=== PATIENT | female | born 1940 | race Native Hawaiian/Other Pacific Islander ===

== ENCOUNTER 2016-12-20 07:08 | Day surgery (SDC) | payer MEDICARE, MEDICAID ==
[2016-12-18 09:17] VITALS: BMI 28.7
[2016-12-20] MEDS ORDERED: Propofol 10 mg/ml Inj (20 ML) ONE (08:13)
[2016-12-20] MEDS ORDERED: Lidocaine 2% Inj (20ml) ONE (08:24)
[2016-12-20] MEDS ORDERED: Etomidate 20 mg/10ml Inj IV ONE (08:24)
[2016-12-20] MEDS ORDERED: Sodium Chloride 0.9% 1,000 ML IV SCH (09:00)
[2016-12-20 09:05] VITALS: O2SAT 99
[2016-12-20 09:52] VITALS: BP 153/75; PULSE 61; RESP 20; TEMP 98.5
== END 2016-12-20 10:22 | disposition home or self-care (01) ==
LOC: ENDO 07:08
PROVIDERS: ATTEND Specialist
DX: Z12.11 Encounter for screening for malignant neoplasm of colon (principal); K62.1 Rectal polyp; K57.30 Diverticulosis of large intestine without perforation or abscess without bleeding; K64.8 Other hemorrhoids
CPT/HCPCS: 45385; 82948; 88305; J2704; J7040 ×2

== ENCOUNTER 2018-01-30 06:39 | Day surgery (SDC) | payer MEDICARE, MEDICAID ==
[2018-01-02 14:09] VITALS: BMI 23.6
[2018-01-30 07:11] VITALS: RESP 16; TEMP 98.8
[2018-01-30] MEDS ORDERED: Propofol 10 mg/ml Inj (20 ML) ONE (08:04)
[2018-01-30] MEDS ORDERED: Lidocaine 1% Inj (20ml) ONE (08:04)
[2018-01-30] MEDS ORDERED: Sodium Chloride 0.9% 1,000 ML IV SCH (08:30)
[2018-01-30 08:55] VITALS: O2SAT 99
[2018-01-30 09:35] VITALS: BP 127/78; PULSE 64
== END 2018-01-30 10:15 | disposition home or self-care (01) ==
LOC: ENDO 06:39
PROVIDERS: ATTEND Specialist
DX: K29.70 Gastritis, unspecified, without bleeding (principal); K31.89 Other diseases of stomach and duodenum; R07.89 Other chest pain; I10 Essential (primary) hypertension; E11.9 Type 2 diabetes mellitus without complications; E78.5 Hyperlipidemia, unspecified; E03.9 Hypothyroidism, unspecified; M81.0 Age-related osteoporosis without current pathological fracture; Z79.84 Long term (current) use of oral hypoglycemic drugs
CPT/HCPCS: 43239; 82948; 88305; 88312; 88342; J2704; J7030; J7040

== ENCOUNTER 2018-05-03 10:18 | Day surgery (SDC) | payer MEDICARE, MEDICAID ==
[2018-04-30 11:43] VITALS: BMI 30.1
[2018-05-03 10:52] LABS: BASO # 0.04 K/mm3 (0.0-2.0); BASO % 0.6 % (0.0-3.0); EOS # 0.1 (0.0-0.7); EOS % 2.1 % (1.5-5.0); HEMOGLOBIN 13.7 g/dL (12.0-16.0); LYMPH # 1.5 (1.2-3.4); LYMPH % 23.4 % (22.0-35.0); MEAN CELL VOLUME 87.9 fl (80.0-105.0); MEAN CORPUSCULAR HEMOGLOBIN 29.1 pg (25.0-35.0); MEAN CORPUSCULAR HGB CONC 33.2 g/dl (31.0-37.0); MEAN PLATELET VOLUME 8.8 fl (7.0-11.0); MONO # 0.4 (0.1-0.6); MONO % 5.5 % (1.0-6.0); RBC 4.7 10^6/uL (3.5-6.1); RED CELL DISTRIBUTION WIDTH 12.6 % (11.5-14.5); WHITE BLOOD COUNT 6.6 10^3/uL (4.5-11.0)
[2018-05-03 10:58] LABS: BLOOD UREA NITROGEN 16 mg/dL (7-21); CALCIUM 9.5 mg/dL (8.4-10.5); GFR NON-AFRICAN AMERICAN > 60
[2018-05-03 11:01] LABS: INR 0.95; PARTIAL THROMBOPLASTIN TIME 33.5 Seconds (26.9-38.3); PROTHROMBIN TIME 10.7 SECONDS (9.4-12.5)
[2018-05-03] MEDS ORDERED: Lidocaine 1% Inj (20ml) ONE (13:13)
[2018-05-03] MEDS ORDERED: Midazolam 2 MG/2 ML VIAL ONE (13:13)
[2018-05-03] MEDS ORDERED: Midazolam 2 MG/2 ML VIAL IVP ONE (13:35)
[2018-05-03] MEDS ORDERED: Oxycodone/Acetaminophen 5/325 mg Tab PO PRN (13:46)
[2018-05-03] MEDS ORDERED: Sodium Chloride 0.45% 1,000 ML IV SCH (14:00)
[2018-05-03 14:39] VITALS: RESP 18; TEMP 98.5
[2018-05-03 15:08] VITALS: BP 129/63; PULSE 82; O2SAT 97
--- NOTE | 2018-05-03 16:02 | US ---
PROCEDURE: Ultrasound-guided right thyroid fine needle aspiration biopsy. CLINICAL HISTORY: 2.1 cm dominant right thyroid nodule. Evaluate for malignancy. PHYSICIAN(S): Jake Prieto M.D. TECHNIQUE: The relative risks and indications for the procedure were explained to the patient and consent obtained. The patient was placed supine on the stretcher with the neck extended and preliminary sonography of the thyroid performed. This reveal 2.1 cm hypoechoic nodule in the mid right thyroid. The left gland is atrophic and may have been previously removed The neck was prepped and draped in the usual sterile fashion. Conscious sedation and monitoring were provided throughout the procedure by a nurse. 1% Xylocaine was used to anesthetize the skin and soft tissues at the access site. Three passes with a 22-gauge needle were performed under ultrasound guidance for fine needle aspiration of the 2.1 cm hypoechoic nodule in the right thyroid. The slides were reviewed by pathology and deemed adequate. The patient tolerated the procedure well. IMPRESSION: 1. Ultrasound guided fine needle aspiration of a 2.1 cm dominant hypoechoic nodule in the right thyroid
== END 2018-05-03 15:36 | disposition home or self-care (01) ==
LOC: SDS 10:18
PROVIDERS: ATTEND Radiology Vascular & Interventional Radiology
DX: E04.1 Nontoxic single thyroid nodule (principal); I10 Essential (primary) hypertension; M81.0 Age-related osteoporosis without current pathological fracture; E11.9 Type 2 diabetes mellitus without complications; Z79.84 Long term (current) use of oral hypoglycemic drugs
CPT/HCPCS: 10005; 36415; 80048; 85025; 85610; 85730; 88173; 88305; J2250; J2405; J3010; J7030